=== PATIENT | male | born 1965 | race Caucasian/White ===

== ENCOUNTER 2024-01-01 18:11 | Inpatient (IN) | payer BC ==
[~2024-01-01] VITALS: Ht 185.4 cm; Wt 100.2 kg
[2024-01-01 19:08] LABS: BASOPHILS ABSOLUTE AUTO 0.03 K/mm3 (0.00-0.23); BASOPHILS PERCENT AUTO 0 % (0-2); EOSINOPHILS ABSOLUTE AUTO 0.08 K/mm3 (0.00-0.68); EOSINOPHILS PERCENT AUTO 1 % (0-6); Hematocrit 40.5 % (37.0-53.0); Hemoglobin 13.9 g/dL (13.5-17.5); IMMATURE GRAN ABSOLUTE AUTO 0.03 K/mm3 (0.00-0.10); IMMATURE GRAN PERCENT AUTO 0 % (0-1); LYMPHOCYTES ABSOLUTE AUTO 1.43 K/mm3 (0.84-5.20); LYMPHOCYTES PERCENT AUTO 18 % (21-46); MONOCYTES PERCENT AUTO 11 % (4-13); Mean Corpuscular HGB Conc 34.3 g/dL (31.5-36.5); Mean Corpuscular Volume 88 fL (80-100); Mean Platelet Volume 9.6 fL (9.1-12.4); NEUTROPHILS ABSOLUTE AUTO 5.44 K/mm3 (1.96-9.15); NEUTROPHILS PERCENT AUTO 69 % (41-73); Platelet Count 211 K/mm3 (150-400); RDW Coefficient Variation 11.8 % (11.7-14.2); RDW Standard Deviation 37.9 fL (35.1-46.3); Red Blood Cell Count 4.63 M/mm3 (4.30-5.90); White Blood Cell Count 7.91 K/mm3 (4.00-11.30)
[2024-01-01] MEDS ORDERED: LevoFLOXacin 750 MG/D5W 150ML 150 ML IV ONE (19:25)
[2024-01-01] MEDS ORDERED: Piperacillin/Tazobactam Sod 3.375 GM in NS 100 ML IV ONE (19:25)
[2024-01-01] MEDS ORDERED: NS 1,000 ML IV SCH ×2 (19:25→19:50)
[2024-01-01 19:28] LABS: Albumin, Blood 3.4 g/dL (3.4-5.0); Albumin/Globulin Ratio 0.8 (0.8-1.8); Bilirubin, Total 0.6 mg/dL (0.1-1.0); Bun/Creatinine Ratio 15.8 (12.0-20.0); Calcium, Blood 8.9 mg/dL (8.5-10.1); Creatinine, Blood 1.01 mg/dL (0.60-1.20); Globulin, Blood 4.1 g/dL (2.2-4.0); Potassium, Blood 3.5 mmol/L (3.5-5.5); Total Protein, Blood 7.5 g/dL (6.4-8.2)
[2024-01-01] MEDS ORDERED: FentaNYL Citrate 50 MCG/ML 2 ML Injection IV PRN (19:50)
[2024-01-01] MEDS ORDERED: Ondansetron HCl 2 MG / ML 2ML Vial IV PRN (19:50)
[2024-01-01 21:23] VITALS: BP 135/73
[2024-01-02] MEDS ORDERED: Piperacillin/Tazobactam Sod 4.5 GM in NS 100 ML IV SCH
[2024-01-02 03:45] VITALS: BP 132/80
[2024-01-02 05:10] LABS: BASOPHILS ABSOLUTE AUTO 0.03 K/mm3 (0.00-0.23); BASOPHILS PERCENT AUTO 0 % (0-2); EOSINOPHILS PERCENT AUTO 1 % (0-6); Hematocrit 37.6 % (37.0-53.0); Hemoglobin 12.7 g/dL (13.5-17.5); IMMATURE GRAN ABSOLUTE AUTO 0.02 K/mm3 (0.00-0.10); IMMATURE GRAN PERCENT AUTO 0 % (0-1); LYMPHOCYTES ABSOLUTE AUTO 1.39 K/mm3 (0.84-5.20); LYMPHOCYTES PERCENT AUTO 17 % (21-46); MONOCYTES ABSOLUTE AUTO 1.07 K/mm3 (0.16-1.47); MONOCYTES PERCENT AUTO 13 % (4-13); Mean Corpuscular HGB Conc 33.8 g/dL (31.5-36.5); Mean Corpuscular Volume 89 fL (80-100); NEUTROPHILS ABSOLUTE AUTO 5.75 K/mm3 (1.96-9.15); NEUTROPHILS PERCENT AUTO 69 % (41-73); Platelet Count 192 K/mm3 (150-400); RDW Coefficient Variation 11.9 % (11.7-14.2); RDW Standard Deviation 38.3 fL (35.1-46.3); Red Blood Cell Count 4.24 M/mm3 (4.30-5.90); White Blood Cell Count 8.36 K/mm3 (4.00-11.30)
[2024-01-02 05:52] LABS: Albumin, Blood 2.9 g/dL (3.4-5.0); Albumin/Globulin Ratio 0.8 (0.8-1.8); Bilirubin, Total 0.7 mg/dL (0.1-1.0); Bun/Creatinine Ratio 13.2 (12.0-20.0); Calcium, Blood 7.9 mg/dL (8.5-10.1); Creatinine, Blood 1.14 mg/dL (0.60-1.20); Globulin, Blood 3.6 g/dL (2.2-4.0); Potassium, Blood 3.6 mmol/L (3.5-5.5); Total Protein, Blood 6.5 g/dL (6.4-8.2)
--- NOTE | 2024-01-02 05:57 | NUR ---
SHIFT SUMMARY: PATIENT FULLY ORIENTED. AMBULATORY TO BATHROOM. COMPLAINTS OF MILD PAIN IN ABDOMEN, NO REQUESTS FOR PAIN MEDS. NPO. IV ANTIBIOTICS.
[2024-01-02 08:01] VITALS: BP 124/83
--- NOTE | 2024-01-02 09:00 | NUR ---
pt laying in bed watching tv, a/ox4, denies complaints of pain this am, states he's doing fine, recieved order for clear liquids for breakfast from Dr. Browne, lungs are clear t/o, resp even and unlabored, no cough noted, hrr, no edema noted, piv clear and patent, infusing saline as ordered, btx4, abd flat soft nontender, voids without diff, skin c/w/d, estrada, maria guadalupe, call light in reach.
--- NOTE | 2024-01-02 13:50 | NUR ---
OBTAINED REPORT FROM PREVIOUS RN AND NOW PROVIDING CARE TO PT
[2024-01-02 14:52] VITALS: BP 130/86
[2024-01-02] MEDS ORDERED: NS 250 ML IV PRN (17:55)
--- NOTE | 2024-01-02 19:29 | NUR ---
SHIFT SUMMARY PT WITH NO CHANGES SINCE ASSUMING CARE TODAY. SURGEON IN TO SEE PT WITH NO NEW ORDERS AT THIS TIME.
[2024-01-02 19:59] VITALS: BP 126/72
[2024-01-03 02:54] VITALS: BP 130/76
--- NOTE | 2024-01-03 06:40 | NUR ---
SHIFT SUMMARY: PATIENT FULLY ORIENTED, COOPERATIVE. NO COMPLAINTS OF PAIN. SLEPT WELL THROUGH NIGHT EXCEPT WHEN INTERRUPTED FOR MEDICATION ADMINISTRATION.
[2024-01-03 07:44] VITALS: BP 136/73
[2024-01-03 17:14] VITALS: BP 134/84
--- NOTE | 2024-01-03 18:39 | NUR ---
SHIFT SUMMARY PT A&OX4, VSS, AMB IND, TOLERATING PO, VOIDING, AND DENIED PAIN. NO ACUTE CHANGES THIS SHIFT. CALL LIGHT WITHIN REACH AND PT ABLE TO MAKE NEEDS KNOWN.
[2024-01-03 20:11] VITALS: BP 132/75
[2024-01-04 04:46] VITALS: BP 137/88
[2024-01-04 05:02] LABS: BASOPHILS ABSOLUTE AUTO 0.03 K/mm3 (0.00-0.23); BASOPHILS PERCENT AUTO 1 % (0-2); EOSINOPHILS ABSOLUTE AUTO 0.15 K/mm3 (0.00-0.68); EOSINOPHILS PERCENT AUTO 3 % (0-6); Hematocrit 39.7 % (37.0-53.0); Hemoglobin 13.4 g/dL (13.5-17.5); IMMATURE GRAN ABSOLUTE AUTO 0.01 K/mm3 (0.00-0.10); IMMATURE GRAN PERCENT AUTO 0 % (0-1); LYMPHOCYTES ABSOLUTE AUTO 1.64 K/mm3 (0.84-5.20); LYMPHOCYTES PERCENT AUTO 32 % (21-46); MONOCYTES PERCENT AUTO 12 % (4-13); Mean Corpuscular HGB 29.8 pg (26.0-34.0); Mean Corpuscular HGB Conc 33.8 g/dL (31.5-36.5); Mean Corpuscular Volume 88 fL (80-100); Mean Platelet Volume 9.9 fL (9.1-12.4); NEUTROPHILS PERCENT AUTO 53 % (41-73); Platelet Count 214 K/mm3 (150-400); RDW Coefficient Variation 11.6 % (11.7-14.2); RDW Standard Deviation 36.9 fL (35.1-46.3); White Blood Cell Count 5.13 K/mm3 (4.00-11.30)
[2024-01-04 05:28] LABS: Bun/Creatinine Ratio 8.3 (12.0-20.0); Calcium, Blood 8.4 mg/dL (8.5-10.1); Creatinine, Blood 1.09 mg/dL (0.60-1.20); Potassium, Blood 3.9 mmol/L (3.5-5.5)
[2024-01-04 07:35] VITALS: BP 142/85
[2024-01-04] MEDS ORDERED: Lactobacil 2-S.Thermo-Bifido 1 1 Cap PO SCH (09:00)
[2024-01-04] MEDS ORDERED: AMOCLA875 PO (10:31)
[2024-01-04] MEDS ORDERED: VISBIOME 112.51 EACH PO (10:32)
--- NOTE | 2024-01-04 14:18 | NUR ---
DISCHARGE NOTE PT DISCHARGED HOME AT 1200. PT PROVIDED W/ VERBAL AND WRITTEN INSTRUCTIONS AND REPORTED UNDERSTANDING. PT A&OX4, VSS, AMB IND, TOLERATING PO, VOIDING, AND DENIED PAIN. BELONGINGS WERE RETURNED. PT HAD LUNCH PER ORDER AND DENIED PAIN AND OR DISCOMFORT DURING AND AFTER EATING. PT ESCOURTED OUT BY .
== END 2024-01-04 13:56 | disposition home or self-care (01) | DRG 392 ==
LOC: ER 18:11 → MEDS 19:47
PROVIDERS: Family Medicine; Student in an Organized Health Care Education/Training Program; ADMIT Internal Medicine
DX: K57.20 Diverticulitis of large intestine with perforation and abscess without bleeding (principal); R10.32 Left lower quadrant pain; R10.31 Right lower quadrant pain; R31.9 Hematuria, unspecified; K57.32 Diverticulitis of large intestine without perforation or abscess without bleeding; M51.36 Other intervertebral disc degeneration, lumbar region; M47.816 Spondylosis without myelopathy or radiculopathy, lumbar region; N28.1 Cyst of kidney, acquired; R10.84 Generalized abdominal pain; R50.9 Fever, unspecified; Z98.890 Other specified postprocedural states
CPT/HCPCS: 36415; 74177; 80048; 80053; 83605; 83880; 85025; 93005; 93010; 99285-25; A9270; J2543; J7030; J7050; Q9967

== ENCOUNTER 2024-02-15 11:49 | Day surgery (SDC) | payer BC ==
[~2024-02-15] VITALS: Ht 185.4 cm; Wt 105.0 kg
[~2024-02-15 11:49] MED LIST: AMOCLA875 PO; VISBIOME 112.51 EACH PO
[2024-02-15] MEDS ORDERED: propofoL 50 ML IV ONE (12:23)
[2024-02-15] MEDS ORDERED: Lactated Ringer's 1,000 ML IV ONE ×2 (12:23→12:54)
[2024-02-15 14:05] VITALS: BP 140/78
== END 2024-02-15 14:02 | disposition home or self-care (01) ==
LOC: ORSCSDS 11:49
PROVIDERS: Surgery
PROC: 0DBH8ZX Excision of Cecum, Via Natural or Artificial Opening Endoscopic, Diagnostic (ICD-10-PCS; principal; 2024-02-15 13:00)
PROC: 0DBN8ZX Excision of Sigmoid Colon, Via Natural or Artificial Opening Endoscopic, Diagnostic (ICD-10-PCS; principal; 2024-02-15 13:00)
PROC: 0DBL8ZX Excision of Transverse Colon, Via Natural or Artificial Opening Endoscopic, Diagnostic (ICD-10-PCS; principal; 2024-02-15 13:00)
DX: K57.92 Diverticulitis of intestine, part unspecified, without perforation or abscess without bleeding (principal); K63.5 Polyp of colon; K57.30 Diverticulosis of large intestine without perforation or abscess without bleeding; K64.1 Second degree hemorrhoids; Z72.0 Tobacco use; Z79.899 Other long term (current) drug therapy
CPT/HCPCS: 88305; J2704; J7120

== ENCOUNTER 2024-07-19 06:08 | Day surgery (SDC) | payer BC ==
[~2024-07-19] VITALS: Ht 185.4 cm; Wt 110.2 kg
[2024-07-19] VITALS (11 sets, daily range): BP systolic 145–164; BP diastolic 72–96
[2024-07-19] MEDS ORDERED: Lactated Ringer's 1,000 ML IV SCH (06:25)
[2024-07-19] MEDS ORDERED: CeFAZolin Sodium 2,000 MG in NS 100 ML IV SCH (06:25)
--- NOTE | 2024-07-19 07:00 | NUR ---
INTO SDS AMBULATORY. PT DENIES PAIN OR SOB. HISTORY AND ALLERGIES REVIEWED. LUNGS CLEAR. SBP 160'S-PT DOES NOT TAKE ANY MEDS OR HAVE A DX OF HTN. NPO STATUS CONFIRMED. CHLORHEXIDINE SHOWER AND WIPE X 2. PT MOLLY HAS HIS CELL PHONE AND WALLET-SHE WILL BE DRIVING HIM HOME TODAY.
[2024-07-19] MEDS ORDERED: Bupivacaine 0.5% HCl 5 MG/ML 30MLVIAL ONE (07:19)
[2024-07-19] MEDS ORDERED: CeFAZolin Sodium 2,000 MG VIAL ONE (07:21)
[2024-07-19] MEDS ORDERED: FentaNYL Citrate 50 MCG/ML 2 ML Injection ONE (07:27)
[2024-07-19] MEDS ORDERED: propofoL 20 ML IV ONE (07:27)
[2024-07-19] MEDS ORDERED: Midazolam HCl 1MG / ML 2ML Vial ONE (07:27)
[2024-07-19] MEDS ORDERED: Rocuronium Bromide 10 MG/ML 5ML Injection IV ONE (07:27)
[2024-07-19] MEDS ORDERED: Albuterol 2.5 MG/3 ML VIAL INH PRN (07:30)
[2024-07-19] MEDS ORDERED: Labetalol HCL 5 MG/ML 4ML Injection (Single Dose) IV PRN (07:30)
[2024-07-19] MEDS ORDERED: Atropine Sulfate 0.1 MG/ML 10ML SYR IV PRN (07:30)
[2024-07-19] MEDS ORDERED: FentaNYL Citrate 50 MCG/ML 2 ML Injection IV PRN ×2 (07:30→07:35)
[2024-07-19] MEDS ORDERED: Ondansetron HCl 2 MG / ML 2ML Vial IV PRN (07:35)
[2024-07-19] MEDS ORDERED: Prochlorperazine Edisylate 10 mg Vial IV PRN (07:35)
[2024-07-19] MEDS ORDERED: HYDROmorphone HCl/Pf 1MG SYR IV PRN ×2 (07:35)
[2024-07-19] MEDS ORDERED: Ondansetron HCl 2 MG / ML 2ML Vial ONE (07:44)
[2024-07-19] MEDS ORDERED: Dexamethasone Sod Phos 10 MG/ML 1ML VIAL ONE (07:44)
[2024-07-19] MEDS ORDERED: EpiNEPhrine 1 MG/1 ML 1ML Vial ONE (08:02)
[2024-07-19] MEDS ORDERED: HYDROmorphone HCl/Pf 1MG SYR ONE (09:44)
[2024-07-19] MEDS ORDERED: Sugammadex Sodium 200 MG/2ML SDV (100 MG/ML) ONE (10:05)
[2024-07-19] MEDS ORDERED: OxyCODONE 5 mg/Acetamin 325 mg TABLET PO PRN (11:20)
--- NOTE | 2024-07-19 11:45 | NUR ---
Discharge instructions reviewed with patient. Patient verbalizes understanding. Copy given to patient to take home. BELONGINGS RETURNED TO PT. AT BEDSIDE DURING RECOVERY INCLUDING DURING DISCHARGE INSTRUCTIONS. Discharged via wheelchair to private car for ride home WITH SPOUSE.
== END 2024-07-19 23:00 | disposition home or self-care (01) ==
LOC: ORSCMMR 06:08 → ORD 07:30 → ORSCMMR 23:00
PROVIDERS: Surgery
PROC: 0YUE4JZ Supplement Bilateral Femoral Region with Synthetic Substitute, Percutaneous Endoscopic Approach (ICD-10-PCS; principal; 2024-07-19 07:30)
PROC: 8E0W4CZ Robotic Assisted Procedure of Trunk Region, Percutaneous Endoscopic Approach (ICD-10-PCS; principal; 2024-07-19 07:30)
PROC: 3E0T3BZ Introduction of Anesthetic Agent into Peripheral Nerves and Plexi, Percutaneous Approach (ICD-10-PCS; principal; 2024-07-19 07:30)
PROC: 0YUA4JZ Supplement Bilateral Inguinal Region with Synthetic Substitute, Percutaneous Endoscopic Approach (ICD-10-PCS; principal; 2024-07-19 07:30)
DX: K40.00 Bilateral inguinal hernia, with obstruction, without gangrene, not specified as recurrent (principal); K41.00 Bilateral femoral hernia, with obstruction, without gangrene, not specified as recurrent; K45.0 Other specified abdominal hernia with obstruction, without gangrene; K66.0 Peritoneal adhesions (postprocedural) (postinfection); D17.6 Benign lipomatous neoplasm of spermatic cord; I10 Essential (primary) hypertension; G47.33 Obstructive sleep apnea (adult) (pediatric); E66.9 Obesity, unspecified; Z68.32 Body mass index [BMI] 32.0-32.9, adult; Z79.899 Other long term (current) drug therapy
CPT/HCPCS: A9270; C1781; J0171; J0690; J1100; J1171; J2250; J2405; J2704; J3010; J7120